=== PATIENT | female | born 1975 | race African-American/Black ===

== ENCOUNTER 2017-11-27 19:39 | Emergency (ER) | payer BC, MEDICAID ==
[2017-11-27 20:03] VITALS: BP 105/85
[2017-11-27] MEDS ORDERED: DEXAMETHASONE SOD PHOS INJ 10 MG/1 ML VIAL IM ONE (20:48)
--- NOTE | 2017-11-27 20:50 | ER Document Report ---
HPI - HPI Pain Level: 4 Notes: Patient is a 42-year-old female no significant past medical history who presents to the ED complaining of a sore throat 1 day. Patient states that she is still able to eat and drink without difficulties. She is urinating normally and having normal bowel movements. Denies any drug allergies. Patient has been exposed to illness within the family. She has not had any over -the-counter meds for symptoms. She has not had any hoarseness or drooling. No other concerns or complaints at this time. Denies any headache, fever, URI, chest pain, palpitations, syncope, cough, shortness of breath, wheeze, dyspnea, abdominal pain, nausea/vomiting/diarrhea, urinary retention, dysuria, hematuria , or rash. - ROS Systems Reviewed and Negative: Yes All other systems reviewed and negative - EENT EENT: REPORTS: Sore Throat - NEURO Neurology: REPORTS: Headache Past Medical History - Social History Smoking Status: Never Smoker Family History: Reviewed & Not Pertinent Patient has suicidal ideation: No Patient has homicidal ideation: No Renal/ Medical History: Denies: Hx Peritoneal Dialysis Vertical Provider Document - CONSTITUTIONAL Agree With Documented VS: Yes Notes: PHYSICAL EXAMINATION: GENERAL: Well-appearing, well-nourished and in no acute distress. A&Ox4. Answers questions appropriately. Moves comfortably w/o notable distress HEAD: Atraumatic, normocephalic. EYES: Pupils equal round and reactive to light, extraocular movements intact, sclera anicteric, conjunctiva are normal. ENT: EAC clear b/l. TM's intact b/l without erythema, fluid, or perforation. Nares patent and with clear discharge. oropharynx mild erythema without exudates. 2+ tonsilar hypertrophy with mild erythema no exudate. No palatine shift. Uvula midline. No tongue protrusion. No drooling, hoarseness, or airway compromise. Moist mucous membranes. No sinus tenderness. NECK: Normal range of motion, supple without lymphadenopathy. No rigidity/ meningismus. LUNGS: Breath sounds clear to auscultation bilaterally and equal. No wheezes rales or rhonchi. No retractions HEART: Regular rate and rhythm without murmurs, rubs, gallops. ABDOMEN: Soft, nontender, nondistended abdomen. No guarding, no rebound. No masses appreciated. Normal bowel sounds present. No CVA tenderness bilaterally. No hepatosplenomegaly. NEUROLOGICAL: Normal speech, normal gait. PSYCH: Normal mood, normal affect. SKIN: Warm, Dry, normal turgor, no rashes or lesions noted. Course - Re-evaluation Re-evalutation: 11/27/17 21:01 Patient is an afebrile, well-hydrated, 42-year-old female who presents to the ED with acute strep pharyngitis. Vitals are acceptable. PE is otherwise unremarkable. Patient does not have any significant tachycardia, tachypnea, or hypoxia. Rapid strep was positive. Patient is nontoxic-appearing and is tolerating p.o. without difficulties. Decadron 10 mg given IM today. No other labs or imaging warranted at this time based on H&P. Low suspicion for any meningitis, sepsis, peritonsillar/pharyngeal abscess, respiratory compromise, Reji's, or other emergent systemic condition at this time. Patient is aware this condition can change from initial presentation and she needs to monitor symptoms closely. Prescription for penicillin. Conservative measures otherwise for symptoms. Recheck with your PCM in 3-5 days. Return to the ED with any worsening/concerning symptoms otherwise as reviewed in discharge. Patient is in agreement. - Vital Signs Vital signs: Temp Pulse Resp BP Pulse Ox 99.7 F 91 18 105/85 98 11/27/17 20:01 11/27/17 20:01 11/27/17 20:01 11/27/17 20:01 11/27/17 20:01 Discharge - Discharge Clinical Impression: Acute streptococcal pharyngitis Condition: Stable Disposition: HOME, SELF-CARE Instructions: Strep Throat ([facility]), Penicillin V K ([facility]) Additional Instructions: Maintain adequate fluid intake Take meds as directed Salt water gargles, throat sprays, mouthwash rinse, peroxide gargles tylenol/ibuprofen as needed New toothbrush tomorrow evening over the counter cold medication as needed for symptoms F/u: with your PCM in 3-5 days for a recheck Consider consult with ENT for ongoing/worsening symptoms Return to the ED with any fever, worsening pain, chest pain, neck pain/stiffness , shortness of breath, cough, drooling, trouble swallowing/breathing, abdominal pain, n/v/d, rash, or worsening/concerning symptoms otherwise. Prescriptions: Penicillin V Potassium [Penicillin Vk 250 mg Tablet] 500 mg PO BID #40 tablet Referrals: MICHAEL FARAH DO [ASSOCIATE] - Follow up as needed
== END 2017-11-27 21:17 | disposition home or self-care (01) ==
LOC: ER 19:39
DX: J02.0 Streptococcal pharyngitis (principal); R51 Headache
CPT/HCPCS: 99283; 96372; 87880; J1100